=== PATIENT | male | born 1980 | race Two or more races ===

== ENCOUNTER → 2018-02-20 | Emergency (ER) | payer OTHER ==
[~2018-02-20] VITALS: Ht 238.8 cm; Wt 122.5 kg
[~2018-02-20] MED LIST: ALBUTEROL2.5 MG/3 M IH; SYMBICORT 16010.2 GM IH; ZITHROMAX500 MG PO; ZYNCOF 20-400120 ML PO
== END | disposition home or self-care (01) ==
LOC: ER 01:16
DX: J40 Bronchitis, not specified as acute or chronic (principal)

== ENCOUNTER → 2024-08-05 | Emergency (ER) | payer OTHER ==
[~2024-08-05] VITALS: Ht 190.5 cm; Wt 123.8 kg
[~2024-08-05] MED LIST changes: +ACETAMINOPHEN 500 MG GEL..CAP PO ONE; +AMOX-CLAV 875-1 EACH PO; +CEFTRIAXONE SODIUM 1,000 MG VIAL IV ONE; +CEFTRIAXONE SODIUM 1,000 MG VIAL ONE; +LIDOCAINE HCL/MPF 1% 5ML VIAL IJ ONE
[2024-08-05 17:08] LABS: BASO % 0.8 % (0.1-1.2); EOS # 0.12 (0.04-0.54); EOS % 0.9 % (0.7-7.0); HEMATOCRIT 43.6 % (40.1-51.0); HEMOGLOBIN 14.9 g/dL (13.7-17.5); LYMPH # 2.54 (1.18-3.74); LYMPH % 18.9 % (19.3-53.1); MONO # 1.15 (0.24-0.82); MONO % 8.5 % (4.7-12.5); NEUT # 9.48 (1.56-6.13); NEUT % 70.4 % (34.0-71.1); PLATELET COUNT 281 K/uL (163-369); RED BLOOD COUNT 4.96 M/uL (4.63-6.08); RED CELL DISTRIBUTION WIDTH 12.3 % (11.6-14.4)
[2024-08-05 17:37] LABS: CALCIUM 8.7 mg/dL (8.5-10.1); CREATININE SERUM 1.03 mg/dL (0.70-1.30); GFR 77.75; POTASSIUM 3.98 mEq/L (3.5-5.1)
== END | disposition home or self-care (01) ==
LOC: ER 14:46
PROVIDERS: General Practice
DX: L60.0 Ingrowing nail (principal); Z88.6 Allergy status to analgesic agent; M86.9 Osteomyelitis, unspecified